=== PATIENT | male | born 1950 ===

== ENCOUNTER 2017-06-12 08:44 | Inpatient (IN) | payer MEDICARE, OTHER ==
[2017-06-12 09:43] LABS: Basophils % (Auto) 0.5 % (0.0-1.8); Eosinophils # (Auto) 0.6 K/mm3 (0.0-0.4); Hematocrit 40.8 % (35.5-45.6); Hemoglobin 13.8 gm/dl (11.8-15.2); Lymphocytes # (Auto) 2.7 K/mm3 (1.2-5.4); Lymphocytes % (Auto) 32.2 % (13.4-35.0); Mean Corpuscular HGB Conc 34 % (32-34); Mean Corpuscular Hemoglobin 29 pg (28-32); Mean Corpuscular Volume 85 fl (84-94); Monocytes # (Auto) 0.5 K/mm3 (0.0-0.8); Monocytes % (Auto) 6.3 % (0.0-7.3); Platelet Count 196 K/mm3 (140-440); Red Blood Count 4.83 M/mm3 (3.65-5.03); Red Cell Distribution Width 13.4 % (13.2-15.2)
[2017-06-12] MEDS ORDERED: SUBLIMAZE IV ONE (09:47)
--- NOTE | 2017-06-12 09:48 | Cat Scan Report ---
CT HEAD WITHOUT CONTRAST: HISTORY: Neurological deficit. TECHNIQUE: Sequential 2.5mm CT images. COMPARISON: none. FINDINGS: Cerebral Parenchyma: Within normal limits. Cerebellum: Within normal limits. Brainstem: Within normal limits. Ventricles: Normal. Sella: Normal. Extra-axial spaces: Normal. Basal Cisterns: Normal. Intracranial Hemorrhage: None. Midline Shift: None. Calvarium: Normal. Sinuses: Normal. Mastoid Air Cells: Normal. Visualized Orbits: Normal. IMPRESSION: Cranial CT scan within normal limits. These findings were discussed with Dr. Mota in the emergency department at 0928 hours.
[2017-06-12 09:57] LABS: INR 0.86 (0.87-1.13)
[2017-06-12 09:58] LABS: Partial Thromboplastin Time 26.7 Sec. (24.2-36.6)
[2017-06-12 10:00] LABS: BUN/Creatinine Ratio 19; Blood Urea Nitrogen 15 mg/dL (9-20); Calcium 8.7 mg/dL (8.4-10.2); Hemolysis Index 5
--- NOTE | 2017-06-12 12:02 | Cat Scan Report ---
CTA NECK: HISTORY: CTA. TECHNIQUE: Helical CT following IV contrast. Sagittal and coronal reformatted images. 3D volume rendering technique. Stenosis was calculated using NASCET criteria with the distal ICA being standard diameter. FINDINGS: The visualized aortic arch, innominate artery and proximal bilateral subclavian arteries are widely patent with less than 20% stenosis. Within the right carotid system: There is less than 20% stenosis. Within the left carotid system: There is less than 20% stenosis. The cervical vertebral arteries are patent with less than 20% stenosis. IMPRESSION: Unremarkable CTA of the neck.
--- NOTE | 2017-06-12 12:03 | Cat Scan Report ---
CTA HEAD: HISTORY: Right sided weakness, CVA. TECHNIQUE: Helical CT images after IV contrast with 0.625mm reformations. Sagittal and coronal reformats. Rotational MIP images. 3D volume rendering technique. NASCET criteria were utilized. FINDINGS: The arterial structures of the anterior and posterior circulations are patent throughout. No evidence for stenosis, occlusion or aneurysm. IMPRESSION: Unremarkable CTA head. No large vessel occlusion is identified.
[2017-06-12] MEDS ORDERED: SUBLIMAZE ONE (12:12)
--- NOTE | 2017-06-12 12:38 | Emergency Department Report ---
ED Neuro Deficit HPI - General Chief Complaint: Neuro Symptoms/Deficit Stated Complaint: NEURO SYMPTOMS Time Seen by Provider: 06/12/17 09:23 Source: family, RN notes reviewed Mode of arrival: Wheelchair Limitations: Language Barrier, Physical Limitation - History of Present Illness Initial Comments: Primary care DrDarius: Neo Gage 7-year-old male. Has a past medical history of hypertension and diabetes. The patient is accompanied by his daughter who indicates she will translate for him. Patient presents to the ER with complaint of stroke. 3 days ago began having right-sided pain in the neck and headache. Lost his balance yesterday, his right side was "giving out." His symptoms are constant and they do not radiate anywhere, they worse with physical exertion, and they have no relieving factors. The patient's daughter indicates she feels like her father is at his mental status baseline. No cough, no urinary symptoms. -: Gradual Location: dysarthria, right arm, right leg, ataxia Presenting Symptoms: Present: Weak/Paralyzed One Side, Unable to Speak Clearly History of same: No Place: home Severity: moderate Improves With: other Worsens With: other On Anticoagulants: No Context: gradual onset Associated Symptoms: confusion, headaches, loss of appetite, malise, weakness. denies: chest pain, cough, diaphoresis, fever/chills, nausea/vomiting, vertigo, seizures, shortness of breath, syncope - Related Data Home Medications: Home Medications Medication Instructions Recorded Confirmed Last Taken No Known Home Medications [No 06/12/17 06/12/17 Unknown Reported Home Medications] Allergies/Adverse Reactions: Allergies Allergy/AdvReac Type Severity Reaction Status Date / Time No Known Allergies Allergy Unverified 06/12/17 08:59 ED Review of Systems ROS: Stated complaint: NEURO SYMPTOMS Other details as noted in HPI Comment: All other systems reviewed and negative ED Past Medical Hx - Past Medical History Hx Hypertension: Yes Hx Diabetes: Yes - Surgical History Past Surgical History?: No - Social History Smoking Status: Never Smoker Substance Use Type: None - Medications Home Medications: Home Medications Medication Instructions Recorded Confirmed Last Taken Type No Known Home Medications [No 06/12/17 06/12/17 Unknown History Reported Home Medications] ED Neuro Physical Exam - General Limitations: Physical Limitation General appearance: alert, in no apparent distress Suspected Stroke: Yes - Head Head exam: Present: atraumatic, normocephalic - Eye Eye exam: Present: normal appearance, PERRL, EOMI - ENT ENT exam: Present: normal exam, normal orophraynx, mucous membranes moist, normal external ear exam - Neck Neck exam: Present: normal inspection, full ROM - Respiratory Respiratory exam: Present: normal lung sounds bilaterally. Absent: respiratory distress - Cardiovascular Cardiovascular Exam: Present: normal rhythm, bradycardia, normal heart sounds. Absent: systolic murmur, diastolic murmur, rubs, gallop - GI/Abdominal GI/Abdominal exam: Present: soft, normal bowel sounds. Absent: distended, tenderness, guarding, rebound, rigid, pulsatile mass - Rectal Rectal exam: Present: deferred - Extremities Exam Extremities exam: Present: normal inspection, full ROM, normal capillary refill. Absent: pedal edema, joint swelling, calf tenderness - Back Exam Back exam: Present: normal inspection, full ROM. Absent: tenderness, CVA tenderness (R), paraspinal tenderness, vertebral tenderness - Neurological Exam Neurological exam: Present: alert, motor sensory deficit (there is decreased strength in the right upper extremity, right lower extremity. Sensation intact to light touch in the upper and lower extremities.) - NIHSS Assessment Interval: Baseline 1a. Level of Consciousness: alert 1b. LOC Questions: answers correctly 1c. LOC Commands: performs tasks correctly 2. Best Gaze: normal 3. Visual: partial hemianopia 4. Facial Palsy: normal symmetrical movement 5b. Motor Arm Right: drift 5a. Motor Arm Left: no drift 6a. Motor Leg Left: no drift 6b. Motor Leg Right: drift 7. Limb Ataxia: present 1 limb 8. Sensory: normal 9. Best Language: no aphasia 10. Dysarthria: mild/moderate dysarthria 11. Extinction/Inattention: no abnormality Total Score: 5 Stroke Severity: Moderate Stroke - Psychiatric Psychiatric exam: Present: normal affect, normal mood - Skin Skin exam: Present: warm, dry, intact, normal color. Absent: rash ED Course Vital Signs 06/12/17 06/12/17 06/12/17 08:59 09:45 09:53 Temperature 97.5 F L 97.6 F Pulse Rate 43 L 44 L Respiratory 16 16 16 Rate Blood Pressure 174/83 Blood Pressure 169/92 [Right] O2 Sat by Pulse 100 100 100 Oximetry 06/12/17 06/12/17 06/12/17 10:01 10:25 10:30 Temperature Pulse Rate 43 L 44 L Respiratory 13 16 Rate Blood Pressure 169/92 169/92 165/88 Blood Pressure [Right] O2 Sat by Pulse 100 92 98 Oximetry 06/12/17 06/12/17 06/12/17 11:00 11:30 12:00 Temperature Pulse Rate 40 L 56 L Respiratory 11 L 20 19 Rate Blood Pressure 151/83 155/85 187/116 Blood Pressure [Right] O2 Sat by Pulse 99 99 99 Oximetry 06/12/17 12:20 Temperature Pulse Rate Respiratory 17 Rate Blood Pressure Blood Pressure [Right] O2 Sat by Pulse Oximetry - Lab Data Result diagrams: 06/12/17 09:34 06/12/17 09:34 Lab Results 06/12/17 06/12/17 06/12/17 Range/Units 09:34 09:34 09:34 WBC 8.5 (4.5-11.0) K/mm3 RBC 4.83 (3.65-5.03) M/mm3 Hgb 13.8 (11.8-15.2) gm/dl Hct 40.8 (35.5-45.6) % MCV 85 (84-94) fl MCH 29 (28-32) pg MCHC 34 (32-34) % RDW 13.4 (13.2-15.2) % Plt Count 196 (140-440) K/mm3 Lymph % (Auto) 32.2 (13.4-35.0) % [place] % (Auto) 6.3 (0.0-7.3) % Eos % (Auto) 7.0 H (0.0-4.3) % Baso % (Auto) 0.5 (0.0-1.8) % Lymph # 2.7 (1.2-5.4) K/mm3 [place] # 0.5 (0.0-0.8) K/mm3 Eos # 0.6 H (0.0-0.4) K/mm3 Baso # 0.0 (0.0-0.1) K/mm3 Seg Neutrophils % 54.0 (40.0-70.0) % Seg Neutrophils # 4.6 (1.8-7.7) K/mm3 PT 12.1 L (12.2-14.9) Sec. INR 0.86 L (0.87-1.13) APTT 26.7 (24.2-36.6) Sec. Thrombin Time (15.1-19.6) Sec. Sodium 138 (137-145) mmol/L Potassium 4.2 (3.6-5.0) mmol/L Chloride 100.3 (98-107) mmol/L Carbon Dioxide 25 (22-30) mmol/L Anion Gap 17 mmol/L BUN 15 (9-20) mg/dL Creatinine 0.8 (0.8-1.5) mg/dL Estimated GFR > 60 ml/min BUN/Creatinine Ratio 19 % Glucose 195 H (75-100) mg/dL Calcium 8.7 (8.4-10.2) mg/dL Troponin T < 0.010 (0.00-0.029) ng/mL 06/12/17 Range/Units 09:34 WBC (4.5-11.0) K/mm3 RBC (3.65-5.03) M/mm3 Hgb (11.8-15.2) gm/dl Hct (35.5-45.6) % MCV (84-94) fl MCH (28-32) pg MCHC (32-34) % RDW (13.2-15.2) % Plt Count (140-440) K/mm3 Lymph % (Auto) (13.4-35.0) % [place] % (Auto) (0.0-7.3) % Eos % (Auto) (0.0-4.3) % Baso % (Auto) (0.0-1.8) % Lymph # (1.2-5.4) K/mm3 [place] # (0.0-0.8) K/mm3 Eos # (0.0-0.4) K/mm3 Baso # (0.0-0.1) K/mm3 Seg Neutrophils % (40.0-70.0) % Seg Neutrophils # (1.8-7.7) K/mm3 PT (12.2-14.9) Sec. INR (0.87-1.13) APTT (24.2-36.6) Sec. Thrombin Time 16.1 (15.1-19.6) Sec. Sodium (137-145) mmol/L Potassium (3.6-5.0) mmol/L Chloride (98-107) mmol/L Carbon Dioxide (22-30) mmol/L Anion Gap mmol/L BUN (9-20) mg/dL Creatinine (0.8-1.5) mg/dL Estimated GFR ml/min BUN/Creatinine Ratio % Glucose (75-100) mg/dL Calcium (8.4-10.2) mg/dL Troponin T (0.00-0.029) ng/mL - EKG Data -: EKG Interpreted by Me EKG shows normal: sinus rhythm Rate: bradycardia When compared to previous EKG there are: previous EKG unavailable 06/12/17 12:37 Bradycardia, 42 bpm, normal axis, normal intervals, T-wave inversion aVL, T- wave inversion V2, not having chest pain, abnormal EKG, not morphologically consistent with ST elevation myocardial infarction - Radiology Data Radiology results: report reviewed, image reviewed Noncontrast CT scan of the brain is negative. CT angiogram negative for the head and neck. - Medical Decision Making Differential diagnosis, including the not limited to: Subacute stroke, dissection, thrombosis, hemorrhage, pneumonia, urinary tract infection Assessment and plan: 67-year-old male with 3 days of nonspecific neurologic symptoms. Given that symptoms have been present for greater than 4.5 hours, he is not a TPA/endovascularly candidate. Given that his CT scan does not demonstrate thrombosis or dissection, he does not require transfer to an endovascular institution. Case is discussed with the [place] physician, Dr. Mathews, who gave authorization for the patient to be admitted to this hospital. The case was then discussed with the [facility] physician, Dr. Martinez, who accepted the patient to the medical service. - Core Measures Measure Exclusions: not indicated - Thrombolytic Inclusion/Exclusion Thrombolytic Exclusion Criteria: Symptom Onset > 3 Hours Critical care attestation.: If time is entered above; I have spent that time in minutes in the direct care of this critically ill patient, excluding procedure time. ED Disposition Clinical Impression: Unsteady gait, Right sided weakness Disposition: OP ADMIT IP TO THIS HOSP Is pt being admited?: Yes Does the pt Need Aspirin: Yes Condition: Fair Referrals: PRIMARY CARE, [Primary Care Provider] - 3-5 Days
[2017-06-12] MEDS ORDERED: BABY ASPIRIN PO ONE (12:41)
--- NOTE | 2017-06-12 12:48 | XRay Report ---
AP CHEST: HISTORY: CVA, pneumonia AP view of the chest demonstrates a normal mediastinal and cardiac contour with clear lungs and normal bony and soft tissue structures. IMPRESSION: Unremarkable AP chest.
[2017-06-12 13:14] LABS: Bilirubin,Urine NEG (Negative); Blood,Urine SM (Negative); Color,Urine Straw (Yellow); Mucus,Urine FEW /HPF; Protein,Urine <15 mg/dL mg/dL (Negative); Urobilinogen,Urine < 2.0 mg/dL (<2.0)
[2017-06-12] MEDS ORDERED: ASPIRIN ONE (13:50)
--- NOTE | 2017-06-12 16:19 | History and Physical Report ---
History of Present Illness Date of examination: 06/12/17 Date of admission: 06/12/17 12:41 Chief complaint: CC Rt Sided weakness 3 days History of present illness: History of Present Illness 67 year-old male with Language barrier with past medical history of hypertension and diabetes accompanied by his daughter who indicates she will translate for him Patient presents to the ER with complaint of stroke. 3 days ago began having right-sided pain in the neck and headache. Lost his balance yesterday, his right side was "giving out." His symptoms are worse with physical exertion, and they have no relieving factors. The patient's daughter indicates she feels like her father is at his mental status baseline. No cough, no urinary symptoms.Basically has Rt Sided weaknrss which is present but manageable .Daughter feels that he has rt sided weakness and has difficultywalking Past Medical History: Hx Hypertension: Yes Hx Diabetes: Yes Surgical History Past Surgical History?: No Social History Smoking Status: Never Smoker Substance Use Type: None Family History: Non contributory - Medications Home Medications: Home Medications Medication Instructions Recorded Confirmed Last Taken Type No Known Home Medications [No 06/12/17 06/12/17 Unknown History Reported Home Medications] Medications and Allergies Allergies Allergy/AdvReac Type Severity Reaction Status Date / Time No Known Allergies Allergy Unverified 06/12/17 08:59 Home Medications Medication Instructions Recorded Confirmed Last Taken Type No Known Home Medications [No 06/12/17 06/12/17 Unknown History Reported Home Medications] Review of Systems All systems: negative Constitutional: no weight loss, no weight gain, no fever, no chills Ears, nose, mouth and throat: no ear pain, no ear discharge, no tinnitis, no decreased hearing, no nose pain Cardiovascular: no chest pain, no orthopnea, no palpitations, no rapid/ irregular heart beat, no edema, no syncope, no lightheadedness, no shortness of breath Respiratory: no cough, no cough with sputum, no excessive sputum, no hemoptysis Gastrointestinal: no abdominal pain, no nausea, no vomiting, no diarrhea, no constipation, no change in bowel habits, no hematemesis, no coffee ground emesis Genitourinary Male: no dysuria, no hematuria, no flank pain, no discharge, no urinary frequency, no urinary hesitancy, no nocturia, no incontinence, no erectile dysfunction, no genital pain Rectal: no pain Musculoskeletal: no neck stiffness, no neck pain, no shooting arm pain, no arm numbness/tingling, no low back pain, no shooting leg pain, no leg numbness/ tingling, no redness of joints Integumentary: no rash, no pruritis, no redness, no sores Neurological: paralysis (Tr Sided paresis), no seizures, no syncope Psychiatric: no anxiety, no memory loss, no change in sleep habits, no sleep disturbances Endocrine: no cold intolerance, no heat intolerance, no polyphagia, no excessive thirst, no polydipsia, no polyuria Hematologic/Lymphatic: no easy bruising, no easy bleeding Allergic/Immunologic: no urticaria, no allergic rhinitis, no wheezing Exam - Constitutional Vitals: Temp Pulse Resp BP Pulse Ox 97.6 F 46 L 16 158/85 98 06/12/17 09:53 06/12/17 13:45 06/12/17 13:45 06/12/17 13:45 06/12/17 13:45 General appearance: Present: no acute distress, well-nourished - EENT Eyes: Present: PERRL ENT: hearing intact, clear oral mucosa - Neck Neck: Present: supple, normal ROM - Respiratory Respiratory effort: normal Respiratory: bilateral: CTA - Cardiovascular Heart rate: 70 Rhythm: regular Heart Sounds: Present: S1 & S2. Absent: rub, click - Extremities Extremities: no ischemia, pulses intact, pulses symmetrical, No edema Peripheral Pulses: within normal limits - Abdominal General gastrointestinal: Present: soft, non-tender, non-distended, normal bowel sounds Male genitourinary: Present: normal - Rectal Rectal Exam: deferred - Integumentary Integumentary: Present: clear, warm, dry - Musculoskeletal Musculoskeletal: right sided weakness (4/4 power RE %/5 power EUE Reflexes brisk on rt side) - Psychiatric Psychiatric: appropriate mood/affect, intact judgment & insight - Neurologic Neurologic: CNII-XII intact, moves all extremities - Allied Health Allied health notes reviewed: nursing, case management Results - Labs CBC & Chem 7: 06/12/17 09:34 06/12/17 09:34 Labs: Laboratory Last Values WBC 8.5 K/mm3 (4.5-11.0) 06/12/17 09:34 RBC 4.83 M/mm3 (3.65-5.03) 06/12/17 09:34 Hgb 13.8 gm/dl (11.8-15.2) 06/12/17 09:34 Hct 40.8 % (35.5-45.6) 06/12/17 09:34 MCV 85 fl (84-94) 06/12/17 09:34 MCH 29 pg (28-32) 06/12/17 09:34 MCHC 34 % (32-34) 06/12/17 09:34 RDW 13.4 % (13.2-15.2) 06/12/17 09:34 Plt Count 196 K/mm3 (140-440) 06/12/17 09:34 Lymph % (Auto) 32.2 % (13.4-35.0) 06/12/17 09:34 [place] % (Auto) 6.3 % (0.0-7.3) 06/12/17 09:34 Eos % (Auto) 7.0 % (0.0-4.3) H 06/12/17 09:34 Baso % (Auto) 0.5 % (0.0-1.8) 06/12/17 09:34 Lymph # 2.7 K/mm3 (1.2-5.4) 06/12/17 09:34 [place] # 0.5 K/mm3 (0.0-0.8) 06/12/17 09:34 Eos # 0.6 K/mm3 (0.0-0.4) H 06/12/17 09:34 Baso # 0.0 K/mm3 (0.0-0.1) 06/12/17 09:34 Seg Neutrophils % 54.0 % (40.0-70.0) 06/12/17 09:34 Seg Neutrophils # 4.6 K/mm3 (1.8-7.7) 06/12/17 09:34 PT 12.1 Sec. (12.2-14.9) L 06/12/17 09:34 INR 0.86 (0.87-1.13) L 06/12/17 09:34 APTT 26.7 Sec. (24.2-36.6) 06/12/17 09:34 Thrombin Time 16.1 Sec. (15.1-19.6) 04/30/18 09:34 Sodium 138 mmol/L (137-145) 06/12/17 09:34 Potassium 4.2 mmol/L (3.6-5.0) 06/12/17 09:34 Chloride 100.3 mmol/L (98-107) 06/12/17 09:34 Carbon Dioxide 25 mmol/L (22-30) 06/12/17 09:34 Anion Gap 17 mmol/L 06/12/17 09:34 BUN 15 mg/dL (9-20) 06/12/17 09:34 Creatinine 0.8 mg/dL (0.8-1.5) 06/12/17 09:34 Estimated GFR > 60 ml/min 06/12/17 09:34 BUN/Creatinine Ratio 19 % 06/12/17 09:34 Glucose 195 mg/dL (75-100) H 06/12/17 09:34 Calcium 8.7 mg/dL (8.4-10.2) 06/12/17 09:34 Troponin T < 0.010 ng/mL (0.00-0.029) 06/12/17 09:34 Urine Color Straw (Yellow) 06/12/17 12:42 Urine Turbidity Clear (Clear) 06/12/17 12:42 Urine pH 6.0 (5.0-7.0) 06/12/17 12:42 Ur Specific [place] 1.057 (1.003-1.030) H 06/12/17 12:42 Urine Protein <15 mg/dl mg/dL (Negative) 06/12/17 12:42 Urine Glucose (UA) 150 mg/dL (Negative) 06/12/17 12:42 Urine Ketones Neg mg/dL (Negative) 06/12/17 12:42 Urine Blood Sm (Negative) 06/12/17 12:42 Urine Nitrite Neg (Negative) 06/12/17 12:42 Urine Bilirubin Neg (Negative) 06/12/17 12:42 Urine Urobilinogen < 2.0 mg/dL (<2.0) 06/12/17 12:42 Ur Leukocyte Esterase Neg (Negative) 06/12/17 12:42 Urine WBC (Auto) 1.0 /HPF (0.0-6.0) 06/12/17 12:42 Urine RBC (Auto) 5.0 /HPF (0.0-6.0) 06/12/17 12:42 U Epithel Cells (Auto) < 1.0 /HPF (0-13.0) 06/12/17 12:42 Urine Mucus Few /HPF 06/12/17 12:42 - Imaging and Cardiology EKG: report reviewed Imaging and Cardiology: CTA neck/Head and CT Head negative Assessment and Plan Advance Directives: Yes (Full code) VTE prophylaxis?: Chemical Plan of care discussed with patient/family: Yes - Patient Problems (1) Acute CVA (cerebrovascular accident) Current Visit: Yes Status: Acute Plan to address problem: CVA w/u initiated MRI/MRA/CDS and ECHO ordered Plavix initiated (2) HTN (hypertension) Current Visit: Yes Status: Chronic Qualifiers: Hypertension type: essential hypertension Qualified Code(s): I10 - Essential (primary) hypertension Plan to address problem: Not on any meds Will initiate if BP runs high (3) T2DM (type 2 diabetes mellitus) Current Visit: Yes Status: Chronic 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
[2017-06-13] MEDS ORDERED: AMBIEN PO PRN (02:11)
[2017-06-13] MEDS ORDERED: SODIUM CHLORIDE FLUSH SYRINGE 10 ML IV PRN (02:11)
[2017-06-13] MEDS ORDERED: TYLENOL PO PRN (02:11)
[2017-06-13] MEDS ORDERED: ZOFRAN IV PRN ×2 (02:11→21:11)
[2017-06-13] MEDS ORDERED: SODIUM CHLORIDE FLUSH SYRINGE 10 ML INJ PRN (02:15)
[2017-06-13 03:18] LABS: BUN/Creatinine Ratio 20; Blood Urea Nitrogen 18 mg/dL (9-20); Calcium 8.9 mg/dL (8.4-10.2); Hemolysis Index 4
[2017-06-13 03:42] LABS: Basophils % (Auto) 0.5 % (0.0-1.8); Eosinophils # (Auto) 0.4 K/mm3 (0.0-0.4); Eosinophils % (Auto) 5.2 % (0.0-4.3); Hemoglobin 13.6 gm/dl (11.8-15.2); Lymphocytes % (Auto) 25.2 % (13.4-35.0); Mean Corpuscular HGB Conc 35 % (32-34); Mean Corpuscular Hemoglobin 29 pg (28-32); Mean Corpuscular Volume 83 fl (84-94); Monocytes # (Auto) 0.4 K/mm3 (0.0-0.8); Monocytes % (Auto) 5.6 % (0.0-7.3); Platelet Count 190 K/mm3 (140-440); Red Blood Count 4.69 M/mm3 (3.65-5.03); Red Cell Distribution Width 13.4 % (13.2-15.2)
[2017-06-13] MEDS: HEPARIN SUB-Q SCH ×3 (03:50→22:03)
[2017-06-13] MEDS: PERCOCET 5/325 PO PRN ×2 (03:54→10:45)
[2017-06-13] MEDS: PEPCID PO SCH ×2 (09:38→22:03)
[2017-06-13] MEDS: SODIUM CHLORIDE FLUSH SYRINGE 10 ML IV SCH ×2 (09:39→22:05)
[2017-06-13] MEDS ORDERED: PLAVIX PO SCH (10:00)
[2017-06-13] MEDS: HumaLOG SUB-Q SCH ×4 (10:36→22:04)
--- NOTE | 2017-06-13 15:02 | Magnetic Resonance Report ---
MRI OF THE BRAIN WITHOUT CONTRAST: HISTORY: Right sided weakness, stroke PROCEDURE: Multiplanar, multisequence MR imaging of the brain without IV contrast was performed. FINDINGS: The CT head dated 06/12/17 was reviewed. MRI demonstrates a 5 mm focus of diffusion restriction in the right tim on diffusion image 9. There is a second 7 mm focus of diffusion restriction in the right inferior cerebellar peduncle on diffusion image 5. No other areas of diffusion restriction. T2 shine through artifact is noted high in the right frontal lobe on image 24. There is moderate cortical volume loss and moderate nonspecific chronic white matter changes. Chronic 8mm infarct in the right frontal white matter on FLAIR image 18 is noted. No large chronic infarct. No evidence for hemorrhage, mass or extra-axial fluid collection The midline structures are central. The basal cisterns are patent. There is a 5 mm focus of increased T1 and flair signal along the right side of the brainstem within the perimesencephalic cistern which appears to follow fat signal on all sequences. This appears to represent a tiny incidental lipoma. Normal ventricular size. The orbital cavities and sella turcica demonstrate no abnormality. The visualized paranasal sinuses and mastoid air cells are well aerated. IMPRESSION: 2 millimetric foci of diffusion restriction are identified in the right tim and right inferior cerebellar peduncle consistent with subacute ischemic infarcts. Volume loss. Chronic white matter changes.
--- NOTE | 2017-06-13 15:04 | Magnetic Resonance Report ---
MRA HEAD WITHOUT CONTRAST HISTORY: Stroke. [id number] imaging with MIP reformations of the [place] of [place] is submitted. FINDINGS: There is normal endovascular signal throughout the distal internal carotid arteries, anterior cerebral arteries and middle cerebral arteries. There is decreased flow or focal occlusion in the distal right vertebral artery best demonstrated on axial images 13-19. There is normal flow in the left vertebral artery, basilar artery and posterior cerebral arteries. No evidence for aneurysm or dissection IMPRESSION: Probable high-grade stenosis or occlusion of the distal right vertebral artery.
--- NOTE | 2017-06-13 15:46 | Progress Note ---
Assessment and Plan /Acute CVA (cerebrovascular accident) CVA w/u initiated MRI/MRA/CDS and ECHO ordered MRI showed right Sherice and cerebellar peduncle infract Plavix initiated but neurology recommending to cont aspirin, follow PT eval /HTN (hypertension) Not on any meds Will initiate if BP runs high /T2DM (type 2 diabetes mellitus) SSI Coverage for now Check A1c /HLD (hyperlipidemia) Initiated statins /Nausea with vomiting- placed on zofran /DVT prophylaxis On Heparin Brief history: This 67-year-old right-handed Yakut male developed right sided neck pain radiating to the top of his head on Monday that on Monday the pain was worse with associated vertigo and weakness of his arm and leg but not of his face without nausea. He was admitted to [facility] for further evaluation. Radiological test: MRI brain: 2 mm foci of diffusion restriction identified in the right sherice and right inferior cerebellar peduncle consistent with subacute ischemic infarct. Hospitalist Physical exam: GENERAL: well-developed and well-nourished male lying on bed appeared to be in mild distressed HEENT: Normocephalic. Atraumatic. No conjunctival congestion or icterus. Patient has moist mucous membranes. NECK: Supple. Trachea midline. CHEST/LUNGS: Clear to auscultated bilaterally, breathing nonlabored. No wheezes crackles or rhonchi. HEART/CARDIOVASCULAR: Regular in rate and rhythm. S1 and S2 positive. ABDOMEN: Abdomen is soft, nontender. Patient has normal bowel sounds. SKIN: There is no rash. Warm and dry. NEURO: No focal motor deficit. Follows command. MUSCULOSKELETAL: No joint effusion or tenderness. EXTRIMITY: No edema, no cyanosis or clubbing. PSYCH: Cooperative. Subjective Date of service: 06/13/17 Interval history: Patient seen and examined. Medical records and medication list reviewed. No acute event overnight noted by the RN. Patient complains of right-sided weakness, had episode of emesis today following MRI Discussed plan of care at bedside with patient's family. Objective - Constitutional Vitals: Vital Signs - 12hr 06/13/17 06/13/17 06/13/17 04:02 07:57 08:04 Temperature 98.5 F 97.8 F Pulse Rate 53 L 58 L Respiratory 18 20 18 Rate Blood Pressure 156/82 164/95 O2 Sat by Pulse 96 96 Oximetry 06/13/17 08:38 Temperature Pulse Rate Respiratory Rate Blood Pressure O2 Sat by Pulse 96 Oximetry - Labs CBC & Chem 7: 06/13/17 02:40 06/14/17 06:43 Labs: Abnormal lab results 06/12/17 06/12/17 06/12/17 Range/Units 10:10 15:42 21:26 MCV (84-94) fl MCHC (32-34) % Eos % (Auto) (0.0-4.3) % Glucose (75-100) mg/dL POC Glucose 196 H 146 H 113 H (70-105) Hemoglobin A1c (4-6) % 06/13/17 06/13/17 06/13/17 Range/Units 02:40 02:40 02:40 MCV 83 L (84-94) fl MCHC 35 H (32-34) % Eos % (Auto) 5.2 H (0.0-4.3) % Glucose 182 H (75-100) mg/dL POC Glucose (70-105) Hemoglobin A1c 7.2 H (4-6) % 06/13/17 06/13/17 Range/Units 10:00 15:00 MCV (84-94) fl MCHC (32-34) % Eos % (Auto) (0.0-4.3) % Glucose (75-100) mg/dL POC Glucose 191 H 140 H (70-105) Hemoglobin A1c (4-6) %
--- NOTE | 2017-06-13 18:01 | Consultation ---
History of Present Illness Consult date: 06/13/17 Requesting physician: GERMÁN BREWSTER Reason for Consult: right side weakness, dysphagia, hoarse voice Chief complaint: right side weakness, dysphagia, hoarse voice History of present illness: This 67-year-old right-handed Gambian male developed right sided neck pain radiating to the top of his head on Monday that on Monday the pain was worse with associated vertigo and weakness of his arm and leg but not of his face without nausea. He developed nausea and emesis along with the persistent neck pain and headache and vertigo with some slurring and decreased volume of his speech since yesterday as well. MRI shows acute small strokes in the right anterolateral medulla and right anterior tim and old lacunar strokes bilaterally in the periphery and one old lacunar right cerebellar stroke. He has had borderline blood pressure at home approximately 150/80 according to his daughter who translates. He has not been on any aspirin. He takes a gummy version of calcium but no other prescribed medications or other over-the- counter medications. Symptoms have gone away except for the dizziness and voice change and nausea and emesis. Though he apparently passed a swallow screen last night he was not throwing up but now is with any oral food. 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 Has 2 children, lives with his in one of his daughters and her family.). denies: smoking, alcohol abuse (José some alcohol when much younger), prescription drug abuse, IV drug use (never illicit drugs) Family history: diabetes (brother (same one)), hypertension (same brother), stroke (brother), other (no history of epilepsy) Medications and Allergies Allergies Allergy/AdvReac Type Severity Reaction Status Date / Time No Known Allergies Allergy Unverified 06/12/17 08:59 Home Medications Medication Instructions Recorded Confirmed Last Taken Type No Known Home Medications [No 06/12/17 06/12/17 Unknown History Reported Home Medications] Active Meds: Active Medications Acetaminophen (Tylenol) 650 mg PO Q4H PRN PRN Reason: Pain MILD(1-3)/Fever >100.5/KEANE Clopidogrel Bisulfate (Plavix) 75 mg PO QDAY [facility] Last Admin: 06/13/17 09:38 Dose: 75 mg Famotidine (Pepcid) 20 mg PO BID [facility] Last Admin: 06/13/17 09:38 Dose: 20 mg Heparin Sodium (Porcine) (Heparin) 5,000 unit SUB-Q Q12HR [facility] Last Admin: 06/13/17 10:18 Dose: 5,000 unit Insulin Human Lispro (Humalog) 0 unit SUB-Q ACHS [facility]; Protocol Last Admin: 06/13/17 16:05 Dose: Not Given Morphine Sulfate (Morphine) 2 mg IV Q4H PRN PRN Reason: Pain, Moderate (4-6) Ondansetron HCl (Zofran) 8 mg IV Q8H PRN PRN Reason: Nausea And Vomiting Oxycodone/Acetaminophen (Percocet 5/325) 1 tab PO Q6H PRN PRN Reason: Pain, Moderate (4-6) Last Admin: 06/13/17 10:45 Dose: 1 tab Sodium Chloride (Sodium Chloride Flush Syringe 10 Ml) 10 ml IV BID [facility] Last Admin: 06/13/17 09:39 Dose: 10 ml Sodium Chloride (Sodium Chloride Flush Syringe 10 Ml) 10 ml IV PRN PRN PRN Reason: LINE FLUSH Zolpidem Tartrate (Ambien) 5 mg PO QHS PRN PRN Reason: Insomnia Review of Systems All systems: negative (no headaches usually and no dizziness usually. Some snoring but no pauses have been noted, naps for an hour once a day but does not doze off other times and not sleepy driving. No memory problems.) Physical Examination - Vital Signs Vital Signs: Vital Signs Temp Pulse Resp BP Pulse Ox 97.5 F L 43 L 16 174/83 100 06/12/17 08:59 06/12/17 08:59 06/12/17 08:59 06/12/17 08:59 06/12/17 08:59 - Physical Exam Narrative exam: General Appearance: well developed but overweight (per BMI) late 60s male in [facility], seen with his daughter who translates and his son-in-law. HEENT: atraumatic, normocephalic; no bruits, 2+ Selina without soreness or induration or enlargement, sclerae nonicteric. Oropharynx pink and moist. No TMJ click, no TMJ or sinus soreness to pressure or percussion. Neck: supple, no bruits. Heart: no murmur but sounds are distant. Extremities: no clubbing, cyanosis or edema. 2+ dorsalis pedis pulses bilaterally. Neurologic Exam: Mental Status: Awake, alert, oriented X 3, speech is clear to me but hoarse though his daughter states it is also a little slurred, names pen and tip of pen in Gambian, poor abstraction. Names President but not Respiratory Therapy Manager, serial 7's intact, no right-left confusion, gets 3 of 3 objects at 3 minutes, spells WORLD backwards correctly in Gambian. Cranial Nerves: cazares full, no papilledema, can't cooperate enough to see venous pulsations, PERRLA without Sheila's, EOMs full without nystagmus or diplopia, facial sensation intact to pinprick and light touch, right ptosis or possibly enlarged left palpebral fissure instead, Maher is midline, palate rises symmetrically to phonation but gags are absent, shoulder shrug is 5 X 2, tongue protrudes midline. Cerebellar: finger to nose is dysmetric on the left with some perpendicular tremor but intact on the right, heel to lomeli is intact bilaterally. Sensory: intact to light touch, pinprick, and vibrations. Double simultaneous stimulation is intact. Motor Exam Upper Extremities: no drift or pronation, Kurt intact. Certified Master Safe Technician are 5 X 2, tone is normal. No atrophy or fasciculations are noted visually. Motor Exam Lower Extremities: no leg lag, quadriceps and anterior tibials and gastrocnemius are 5 X 2. Kurt intact. Tone is normal. No atrophy or fasciculations are noted visually. Reflexes: Palmomental, snout and jaw jerk are negative. Triceps are trace, biceps are trace right and 0 left and brachioradialis are 0 bilaterally. Kae's is negative bilaterally. Knee jerks are 1 and ankle jerks are 0 bilaterally becoming trace right and 2 left with reinforcement and without clonus. Toes are downgoing bilaterally to Babinski testing. - Assessment Assessment Interval: Baseline - Level of Consciousness 1a. Level of Consciousness: alert - LOC Questions 1b. LOC Questions: answers correctly - LOC Command 1c. LOC Commands: performs tasks correctly - Best Gaze 2. Best Gaze: normal - Visual 3. Visual: partial hemianopia - Facial Palsy 4. Facial Palsy: normal symmetrical movement - Motor Arm 5b. Motor Arm Right: drift - Motor Leg 6a. Motor Leg Left: no drift - Limb Ataxia 7. Limb Ataxia: present 1 limb - Sensory 8. Sensory: normal - Best Language 9. Best Language: no aphasia - Dysarthria 10. Dysarthria: mild/moderate dysarthria - Extinction and Inattention 11. Extinction/Inattention: no abnormality Results - Laboratory Findings CBC and BMP: 06/13/17 02:40 06/13/17 02:40 Abnormal Lab Findings: Abnormal Labs 06/12/17 06/12/17 06/12/17 09:34 09:34 09:34 MCV MCHC Eos % (Auto) 7.0 H Eos # 0.6 H PT 12.1 L INR 0.86 L Glucose 195 H POC Glucose Hemoglobin A1c Ur Specific Thornton 06/12/17 06/12/17 06/12/17 10:10 12:42 15:42 MCV MCHC Eos % (Auto) Eos # PT INR Glucose POC Glucose 196 H 146 H Hemoglobin A1c Ur Specific Thornton 1.057 H 06/12/17 06/13/17 06/13/17 21:26 02:40 02:40 MCV 83 L MCHC 35 H Eos % (Auto) 5.2 H Eos # PT INR Glucose 182 H POC Glucose 113 H Hemoglobin A1c Ur Specific Thornton 06/13/17 06/13/17 06/13/17 02:40 10:00 15:00 MCV MCHC Eos % (Auto) Eos # PT INR Glucose POC Glucose 191 H 140 H Hemoglobin A1c 7.2 H Ur Specific Thornton Assessment and Plan Impression: 1. Brainstem strokes 2. 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 Await echocardiogram report. By description of daughter, it included bubbles. 2. I discussed the need for 30 day event monitoring after discharge from hospital, to look for atrial fibrillation, which if found, would lead to stronger blood thinner. 3. Added pravastatin 40 mg qhs (when able to swallow safely) while waiting for fasting lipids ordered already for tomorrow. 4. Ordered Speech Pathologist evaluation of swallowing and repeat nursing swallow screen for this evening. Explained possible need for PEG tube but hoping he will get better quickly enough not to need it. 5. Showed him and his family the new and old strokes on his MRI and the narrowing of right vertebral but appears it may be a windowing problem on the head MRA giving that appearance in error. Will discuss with radiologist Dr. Oscar tomorrow. 6. Will increase his Zofran dose. Stopped his Plavix in favor of aspirin, for now rectally, since he was not on aspirin previously and is therefore not an aspirin failure. Change it to oral aspirin when able to swallow pills safely. 45 minutes spent with this patient including review of 100s MRI and MRA and CT angiogram and CT images. Thank you for an interesting consultation on this pleasant late 60s male.
[2017-06-13] MEDS: ASPIRIN PR SCH (20:58)
[2017-06-13] MEDS: PRAVACHOL PO SCH (22:03)
[2017-06-14] MEDS: HumaLOG SUB-Q SCH ×4 (07:34→23:14)
[2017-06-14 08:20] LABS: Alanine Aminotransferase 17 units/L (7-56); Albumin 3.9 g/dL (3.9-5); BUN/Creatinine Ratio 18; Blood Urea Nitrogen 21 mg/dL (9-20); Calcium 8.6 mg/dL (8.4-10.2); Chol/HDL Ratio 2.66 %; HDL Cholesterol 65 mg/dL (40-59); Hemolysis Index 5; LDL Cholesterol,Direct 105 mg/dL (50-130)
[2017-06-14] MEDS: PEPCID PO SCH ×2 (10:48→23:14)
[2017-06-14] MEDS: ASPIRIN PR SCH (10:48)
[2017-06-14] MEDS: SODIUM CHLORIDE FLUSH SYRINGE 10 ML IV SCH ×2 (10:48→23:13)
[2017-06-14] MEDS: NORVASC PO SCH (15:56)
[2017-06-14] MEDS: PERCOCET 5/325 PO PRN (16:14)
[2017-06-14] MEDS: GLUCOPHAGE PO SCH (18:05)
[2017-06-14] MEDS: MORPHINE IV PRN (21:00)
[2017-06-14] MEDS: PRAVACHOL PO SCH (23:14)
[2017-06-14] MEDS: HEPARIN SUB-Q SCH (23:15)
[2017-06-15] MEDS: HumaLOG SUB-Q SCH ×3 (07:56→17:52)
[2017-06-15] MEDS: NORVASC PO SCH (10:19)
[2017-06-15] MEDS: GLUCOPHAGE PO SCH ×2 (10:19→17:52)
[2017-06-15] MEDS: HEPARIN SUB-Q SCH ×2 (10:20→21:17)
[2017-06-15] MEDS: ASPIRIN PR SCH (10:20)
[2017-06-15] MEDS: PEPCID PO SCH ×2 (10:20→21:17)
[2017-06-15] MEDS: SODIUM CHLORIDE FLUSH SYRINGE 10 ML IV SCH ×2 (10:21→21:25)
[2017-06-15] MEDS: PERCOCET 5/325 PO PRN ×2 (10:23→21:18)
--- NOTE | 2017-06-15 13:19 | Progress Note ---
Assessment and Plan /Acute CVA (cerebrovascular accident) CVA w/u initiated MRI/MRA/CDS and ECHO ordered MRI showed right Sherice and cerebellar peduncle infract Plavix initiated but neurology recommending to cont aspirin, follow PT eval Speech recommended mechanical soft diet /HTN (hypertension) Not on any meds at home will start on norvasc /T2DM (type 2 diabetes mellitus) SSI Coverage for now A1c 7.2, will initiate metformin /HLD (hyperlipidemia) Initiated statins /Nausea with vomiting- resolved, placed on zofran /DVT prophylaxis On Heparin Brief history: This 67-year-old right-handed Korean male developed right sided neck pain radiating to the top of his head on Monday that on Monday the pain was worse with associated vertigo and weakness of his arm and leg but not of his face without nausea. He was admitted to [facility] for further evaluation. Radiological test: MRI brain: 2 mm foci of diffusion restriction identified in the right sherice and right inferior cerebellar peduncle consistent with subacute ischemic infarct. Hospitalist Physical exam: GENERAL: well-developed and well-nourished male lying on bed appeared to be in mild distressed HEENT: Normocephalic. Atraumatic. No conjunctival congestion or icterus. Patient has moist mucous membranes. NECK: Supple. Trachea midline. CHEST/LUNGS: Clear to auscultated bilaterally, breathing nonlabored. No wheezes crackles or rhonchi. HEART/CARDIOVASCULAR: Regular in rate and rhythm. S1 and S2 positive. ABDOMEN: Abdomen is soft, nontender. Patient has normal bowel sounds. SKIN: There is no rash. Warm and dry. NEURO: No focal motor deficit. Follows command. MUSCULOSKELETAL: No joint effusion or tenderness. EXTRIMITY: No edema, no cyanosis or clubbing. PSYCH: Cooperative. Subjective Date of service: 06/14/17 Interval history: Patient seen and examined. Medical records and medication list reviewed. No acute event overnight noted by the RN. Patient passed swallow eval for mechanical soft diet Discussed plan of care at bedside with patient's family. Objective - Constitutional Vitals: Vital Signs - 12hr 06/15/17 06/15/17 06/15/17 04:42 04:43 07:45 Temperature 97.7 F 97.7 F Pulse Rate 78 78 76 Respiratory 20 Rate Blood Pressure 167/115 167/115 158/107 O2 Sat by Pulse 97 98 97 Oximetry 06/15/17 06/15/17 06/15/17 10:00 10:19 10:29 Temperature Pulse Rate 76 76 Respiratory Rate Blood Pressure 158/107 O2 Sat by Pulse 96 Oximetry 06/15/17 12:10 Temperature 98.1 F Pulse Rate 79 Respiratory 18 Rate Blood Pressure 165/109 O2 Sat by Pulse 97 Oximetry - Labs CBC & Chem 7: 06/13/17 02:40 06/14/17 06:43 Labs: Abnormal lab results 06/14/17 06/14/17 06/14/17 Range/Units 12:27 17:22 22:12 POC Glucose 152 H 194 H 165 H (70-105) 06/15/17 06/15/17 Range/Units 07:10 12:21 POC Glucose 121 H 188 H (70-105)
[2017-06-15] MEDS ORDERED: PRAVACHOL PO SCH (14:13)
[2017-06-15] MEDS: PRAVACHOL PO SCH (21:17)
[2017-06-15] MEDS: APRESOLINE IV PRN (21:26)
[2017-06-16] MEDS: APRESOLINE IV PRN ×2 (04:38→20:50)
[2017-06-16] MEDS: PERCOCET 5/325 PO PRN (04:55)
[2017-06-16] MEDS: HumaLOG SUB-Q SCH ×5 (07:21→23:03)
[2017-06-16] MEDS: GLUCOPHAGE PO SCH ×2 (08:20→18:14)
--- NOTE | 2017-06-16 08:32 | Progress Note ---
Assessment and Plan /Acute CVA (cerebrovascular accident) CVA w/u initiated MRI/MRA/CDS and ECHO ordered MRI showed right Sherice and cerebellar peduncle infract Plavix initiated but neurology recommending to cont aspirin, follow PT final recommendation Speech recommended mechanical soft diet /HTN (hypertension) Not on any meds at home cont on norvasc, will add BB if remains elevated /T2DM (type 2 diabetes mellitus) SSI Coverage for now A1c 7.2, initiated metformin /HLD (hyperlipidemia) Initiated statin, change it to high dose /Nausea with vomiting- resolved, placed on zofran /DVT prophylaxis On Heparin Brief history: This 67-year-old right-handed Turkmen male developed right sided neck pain radiating to the top of his head on Monday that on Monday the pain was worse with associated vertigo and weakness of his arm and leg but not of his face without nausea. He was admitted to [facility] for further evaluation. Radiological test: MRI brain: 2 mm foci of diffusion restriction identified in the right sherice and right inferior cerebellar peduncle consistent with subacute ischemic infarct. Hospitalist Physical exam: GENERAL: well-developed and well-nourished male lying on bed appeared to be in mild distressed HEENT: Normocephalic. Atraumatic. No conjunctival congestion or icterus. Patient has moist mucous membranes. NECK: Supple. Trachea midline. CHEST/LUNGS: Clear to auscultated bilaterally, breathing nonlabored. No wheezes crackles or rhonchi. HEART/CARDIOVASCULAR: Regular in rate and rhythm. S1 and S2 positive. ABDOMEN: Abdomen is soft, nontender. Patient has normal bowel sounds. SKIN: There is no rash. Warm and dry. NEURO: No focal motor deficit. Follows command. MUSCULOSKELETAL: No joint effusion or tenderness. EXTRIMITY: No edema, no cyanosis or clubbing. PSYCH: Cooperative. Subjective Date of service: 06/15/17 Interval history: Patient seen and examined. Medical records and medication list reviewed. No acute event overnight noted by the RN. Patient tolerating mechanical soft diet c/o neck pain, BP still elevated, c/o generalized weakness, did not get up from bed by himself Discussed plan of care at bedside with patient Objective - Constitutional Vitals: Vital Signs - 12hr 06/15/17 06/15/17 06/15/17 21:23 21:26 22:00 Temperature Pulse Rate 78 Respiratory Rate Blood Pressure 158/99 Blood Pressure [Right] O2 Sat by Pulse 96 Oximetry 06/15/17 06/16/17 06/16/17 23:24 04:30 04:38 Temperature 97.9 F 97.9 F Pulse Rate 78 86 Respiratory 20 18 Rate Blood Pressure 170/95 170/95 Blood Pressure 145/98 [Right] O2 Sat by Pulse 99 98 Oximetry 06/16/17 06/16/17 06/16/17 05:00 05:52 07:43 Temperature 97.7 F 97.9 F Pulse Rate 80 80 75 Respiratory 18 20 Rate Blood Pressure 137/92 Blood Pressure 135/86 [Right] O2 Sat by Pulse 98 98 96 Oximetry - Labs CBC & Chem 7: 06/13/17 02:40 06/14/17 06:43 Labs: Abnormal lab results 06/15/17 06/15/17 06/15/17 Range/Units 12:21 17:17 21:16 POC Glucose 188 H 188 H 157 H (70-105) 06/16/17 Range/Units 06:27 POC Glucose 150 H (70-105)
[2017-06-16] MEDS: ASPIRIN PR SCH (09:34)
[2017-06-16] MEDS: PEPCID PO SCH ×2 (09:34→23:03)
[2017-06-16] MEDS: LOPRESSOR PO SCH ×2 (09:34→23:06)
[2017-06-16] MEDS: HEPARIN SUB-Q SCH ×2 (09:34→23:04)
[2017-06-16] MEDS: NORVASC PO SCH (09:34)
[2017-06-16] MEDS: SODIUM CHLORIDE FLUSH SYRINGE 10 ML IV SCH ×2 (09:35→23:05)
[2017-06-16] MEDS: DULCOLAX PR SCH (11:48)
[2017-06-16] MEDS: MIRALAX 3350 PO SCH (11:55)
--- NOTE | 2017-06-16 13:11 | Cat Scan Report ---
CT HEAD WITHOUT CONTRAST: HISTORY: Right sided numbness. TECHNIQUE: Sequential 2.5mm CT images. COMPARISON: CT head dated 06/12/17. MR brain dated 06/13/17. FINDINGS: No change is appreciated since the previous CT head. The previously described small focal infarcts in the tim and right cerebellar peduncles appear unchanged. No evidence for hemorrhage or new large area of acute ischemia. Prominent Virchow Richie spaces or tiny chronic lacunar infarcts in both basal ganglia are noted and unchanged. Mild cortical volume loss is unchanged. Ventricular size is stable. No extra-axial fluid collection. The calvarium is intact. The sinuses and mastoid air cells are adequately aerated. IMPRESSION: No acute intracranial process is identified. Stable findings since 06/12/17.
--- NOTE | 2017-06-16 15:20 | XRay Report ---
AP ABDOMEN: HISTORY: Vomiting. The abdominal gas pattern is unremarkable. No masses or organomegaly is identified and there is no gross evidence of free air or fluid. No significant soft tissue calcifications are noted. IMPRESSION: Unremarkable abdomen.
--- NOTE | 2017-06-16 17:16 | Progress Note ---
Assessment and Plan /Acute CVA (cerebrovascular accident) CVA w/u initiated MRI/MRA/CDS and ECHO ordered MRI showed right Sherice and cerebellar peduncle infract cont aspirin and statin per neurology will repeat MRI head and neck as pt daughter thinks his stroke might have progressed - repeat CT negative Discussed with neurology in details /Neck pain, could cervical neuropathy vs spinal stenosis, ordered MRI neck /HTN (hypertension) Not on any meds at home cont on norvasc, added BB /T2DM (type 2 diabetes mellitus) SSI Coverage for now A1c 7.2, initiated metformin /HLD (hyperlipidemia) Initiated statin, changed it to high dose prt stroke protocol /Nausea with vomiting- resolved, placed on zofran /DVT prophylaxis On Heparin Brief history: This 67-year-old right-handed Uzbek male developed right sided neck pain radiating to the top of his head on Monday that on Monday the pain was worse with associated vertigo and weakness of his arm and leg but not of his face without nausea. He was admitted to [facility] for further evaluation. His MRI showed right sided small acute CVA. Now repeating MRI as daughter c/o worsening symptom. Radiological test: MRI brain: 2 mm foci of diffusion restriction identified in the right sherice and right inferior cerebellar peduncle consistent with subacute ischemic infarct. Hospitalist Physical exam: GENERAL: well-developed and well-nourished male lying on bed appeared to be in mild distressed, does not opes eyes HEENT: Normocephalic. Atraumatic. No conjunctival congestion or icterus. Patient has moist mucous membranes. NECK: Supple. Trachea midline. CHEST/LUNGS: Clear to auscultated bilaterally, breathing nonlabored. No wheezes crackles or rhonchi. HEART/CARDIOVASCULAR: Regular in rate and rhythm. S1 and S2 positive. ABDOMEN: Abdomen is soft, nontender. Patient has normal bowel sounds. SKIN: There is no rash. Warm and dry. NEURO: moves all extremities MUSCULOSKELETAL: No joint effusion or tenderness. EXTRIMITY: No edema, no cyanosis or clubbing. PSYCH: Cooperative. Subjective Date of service: 06/16/17 Interval history: Patient seen and examined. Medical records and medication list reviewed. patient c/o nausea vomiting this morning Per daughter patient has right sided numbness and she stated that that was not there before discussed plan of care with daughter in details Objective - Constitutional Vitals: Vital Signs - 12hr 06/16/17 06/16/17 06/16/17 05:52 07:43 09:34 Temperature 97.7 F 97.9 F Pulse Rate 80 75 75 Pulse Rate [ From Monitor] Respiratory 18 20 Rate Blood Pressure 137/92 137/92 Blood Pressure 135/86 [Right] O2 Sat by Pulse 98 96 Oximetry 06/16/17 06/16/17 06/16/17 09:46 10:00 11:32 Temperature 97.9 F Pulse Rate 88 93 H Pulse Rate [ 75 From Monitor] Respiratory 20 18 Rate Blood Pressure 124/92 Blood Pressure [Right] O2 Sat by Pulse 96 97 97 Oximetry 06/16/17 12:20 Temperature 97.9 F Pulse Rate 95 H Pulse Rate [ From Monitor] Respiratory 18 Rate Blood Pressure Blood Pressure 124/92 [Right] O2 Sat by Pulse 98 Oximetry - Labs CBC & Chem 7: 06/13/17 02:40 06/14/17 06:43 Labs: Abnormal lab results 06/15/17 06/15/17 06/16/17 Range/Units 17:17 21:16 06:27 POC Glucose 188 H 157 H 150 H (70-105) 06/16/17 Range/Units 11:40 POC Glucose 169 H (70-105)
--- NOTE | 2017-06-16 17:20 | Magnetic Resonance Report ---
FINAL REPORT PROCEDURE: MR BRAIN WO CON TECHNIQUE: Magnetic resonance imaging of the brain was performed without contrast material. HISTORY: right sided numbness COMPARISON: Prior CT scan of the brain 06/16/2017 FINDINGS: The ventricles are normal size and are midline. The sulcal pattern and fissures are mildly prominent consistent with mild atrophy. There prominent perivascular spaces in the base the brain. There is mild increased T2 signal in the periventricular white matter and deep white matter suggesting gliosis related to microvascular disease or white matter changes of aging.. There is a small oval area of increased T2 signal and restricted diffusion near the junction of the cervical cord and medulla on the right laterally consistent with an acute or subacute lacunar infarct. A 2nd lacunar infarct is also visualized in the inferior aspect of the tim anteriorly and to the right of midline. These findings are seen on diffusion-weighted imaging, image 9 series 4 and image 12 series 4. Corpus callosum, region of the pituitary fossa and foramen magnum are unremarkable. There is minimal mucosal thickening posteriorly inferiorly in the left maxillary sinus. Paranasal sinuses otherwise are clear. Mastoid air cells are clear. IMPRESSION: Two small areas restricted diffusion are visualized, 1 in the right side of the tim and 1 near the junction of the cervical cord and medulla to the right of midline as described above. There is no significant mass effect or hemorrhage. There is evidence of mild atrophy and gliosis. Critical value: These findings were discussed in detail with the patient's nurse, nurse Germain Westfall on 06/16/2017 at 5:12 p.m. Eastern standard time who informs me the patient's attending physician will be notified immediately.
--- NOTE | 2017-06-16 18:35 | Magnetic Resonance Report ---
FINAL REPORT EXAM: MR CERVICAL SPINE WO CON HISTORY: right sided numbness TECHNIQUE: MRI examination of the cervical spine without IV contrast PRIORS: Brain MRI 06/16/2017 FINDINGS: Diffusion-weighted imaging not routinely performed on cervical spine MRI. Lesions noted in the tim and brainstem on comparison brain MRI not visible on this exam. Cervical cord and visualized upper portion of the thoracic cord: Nonspecific subtle increased signal in the central cord on T2 and inversion recovery sequences may reflect slight myelomalacia. Acute bone marrow edema: None Vertebral compression fracture: None Anterolisthesis: None Retrolisthesis: C4-5 trace, C5-6 trace Disc narrowing: C4-5 severe, C5-6 moderate, C6-7 slight Diffuse disc bulge: C3-4 moderate, C4-5 moderate, C5-6 moderate, C6-7 slight, C7-T1 slight C5-6 disc bulge predominates to the left of midline and may be associated with a disc-osteophyte complex at the left uncinate joint Focal disc protrusion: Midline posterior protrusion superimposed on the C3-4 disc bulge measures 2.5 mm AP x 4.1 mm transverse. This contacts the ventral margin of the cervical cord. T2 hyperintensity within this disc protrusion may reflect edema. Central canal stenosis: C3-4 moderate to severe, C4-5 moderate to severe, C5-6 severe There is multilevel degenerative hypertrophic changes at the facet joints, uncinate joints, and vertebral endplates. Along with disc bulge, these contribute to neural foraminal stenosis. Right neural foraminal stenosis: C3-4 slight, C4-5 slight, C5-6 severe, C6-7 moderate to severe, C7-T1 slight Left neural foraminal stenosis: C4-5 slight, C5-6 severe, C6-7 moderate to severe, C7-T1 slight to moderate IMPRESSION: Nonspecific subtle T2 hyperintensity in the central cord may reflect slight encephalomalacia secondary to central canal stenosis from C3 through upper C6. Trace degenerative retrolisthesis at C4-5 and C5-6 Midline posterior disc protrusion at C3-4 contacting the ventral margin of the cervical cord Multilevel degenerative change, disc narrowing, diffuse disc bulge, central canal stenosis, and bilateral neural foraminal stenosis
--- NOTE | 2017-06-16 20:29 | Progress Note ---
Assessment and Plan Impression: 1. Brainstem lacunar strokes 2. Hypertension 3. Bladder retention Plan: 1. Since he has just started Lopressor, no need as yet to increase it below sometimes a beta marialuisa has some risk of masking symptoms of hypoglycemia. 2. I showed the images of the old and new MRI to him and his daughter and explained edema around a stroke versus enlargement of a stroke. I explained we cannot tell as yet which this represents. 3. I told him and her that he should not have his Tay catheter removed this soon since he had bladder retention. Dr. Cummins may wish to consult a urologist about timing of another trial without a Tay. 4. I explained I will change his aspirin to oral route. 5. I told his daughter to ask for Percocet when he gets pain and to ask for whoever is covering at night for Dr. Cummins when necessary since she was told no one was covering, but it may be that the nurse meant no neurologist covering night. I explained the private practice neurologist is on most weekends for any emergencies. 40 minutes spent including greater than 50% counseling regarding meaning of MRI images and need for continuing Tay catheter and added blood pressure medications. I explained Dr. Muse is covering next week. Subjective Date of service: 06/16/17 Principal diagnosis: brainstem strokes Interval history: HPI: This 67-year-old Persian male is seen again in follow-up for brainstem strokes. According to his daughter, he developed right eye pain with numbness of the right side of his face yesterday. Blood pressure was high last night but he got some intravenous hydralazine apparently last night and early this morning. Norvasc had been added earlier and Lopressor was added today, both orally. His daughter states he did finally get some pain medication for his pain. He is complaining of bladder pain from the Tay and while examining him he tried to pull it out until I stopped him and told his daughter that it has a balloon inside that will hurt if he tries to remove it. She states he was more dizzy moving around today with nausea. MRI repeated today of the brain at my suggestion showed slightly increased size right lateral medullary lesion but no change in right anterior pontine lesion. I told his daughter this enlargement could account for his increased nausea and dizziness and right facial numbness but we cannot say whether the enlargement of the medullary lesion represents edema next 2 the stroke or the stroke itself has enlarged a little. I told her if it is edema it should go away by the 10th day after the stroke and he would then have some relative improvement. I told her there are no other medications to give for this except the aspirin he is already on which I'll change to oral formulation and blood pressure medicine to control his blood pressure which is now much better. Objective - Exam Narrative Exam: General appearance: well-developed but overweight (per BMI) late 60s age and male in NAD, with his daughter at the bedside. Neurologic Exam: Mental Status: Awake alert oriented to beginning of June, knows it is Monday and that it is 2017, speech is clear and seems less hoarse than yesterday, names pen and point of pen in Persian. Cranial Nerves: cazares full, PERRLA, EOMs full without nystagmus or diplopia, no facial weakness, hears finger rub bilaterally, shoulder shrug is 5 X 2, tongue protrudes midline. Cerebellar: finger to nose is slightly dysmetric bilaterally, [id number] is normal bilaterally. Motor Exam Upper Extremities: no drift or pronation, Kurt are normal. Motor Exam Lower Extremities: Mild left leg lag with some bladder pain. Quadriceps is 5 right and 5- left with associated pain, anterior tibials and gastrocnemius are 5 bilaterally. Kurt are normal. - Vital Sign Vital Signs - 12hr 06/16/17 06/16/17 06/16/17 09:34 09:46 10:00 Temperature Pulse Rate 75 88 Pulse Rate [ 75 From Monitor] Respiratory 20 Rate Blood Pressure 137/92 Blood Pressure [Right] O2 Sat by Pulse 96 97 Oximetry 06/16/17 06/16/17 06/16/17 11:32 12:20 19:46 Temperature 97.9 F 97.9 F 98.1 F Pulse Rate 93 H 95 H 80 Pulse Rate [ From Monitor] Respiratory 18 18 18 Rate Blood Pressure 124/92 155/112 Blood Pressure 124/92 [Right] O2 Sat by Pulse 97 98 96 Oximetry - Laboratory Findings CBC and BMP: 06/13/17 02:40 06/14/17 06:43 Abnormal Lab Findings: Abnormal Labs 06/12/17 06/12/17 06/12/17 09:34 09:34 09:34 MCV MCHC Eos % (Auto) 7.0 H Eos # 0.6 H PT 12.1 L INR 0.86 L BUN Glucose 195 H POC Glucose Hemoglobin A1c HDL Cholesterol Ur Specific High View 06/12/17 06/12/17 06/12/17 10:10 12:42 15:42 MCV MCHC Eos % (Auto) Eos # PT INR BUN Glucose POC Glucose 196 H 146 H Hemoglobin A1c HDL Cholesterol Ur Specific High View 1.057 H 06/12/17 06/13/17 06/13/17 21:26 02:40 02:40 MCV 83 L MCHC 35 H Eos % (Auto) 5.2 H Eos # PT INR BUN Glucose 182 H POC Glucose 113 H Hemoglobin A1c HDL Cholesterol Ur Specific High View 06/13/17 06/13/17 06/13/17 02:40 10:00 15:00 MCV MCHC Eos % (Auto) Eos # PT INR BUN Glucose POC Glucose 191 H 140 H Hemoglobin A1c 7.2 H HDL Cholesterol Ur Specific High View 06/13/17 06/13/17 06/14/17 18:26 21:03 06:43 MCV MCHC Eos % (Auto) Eos # PT INR BUN 21 H Glucose 128 H POC Glucose 139 H 143 H Hemoglobin A1c HDL Cholesterol 65 H Ur Specific High View 06/14/17 06/14/17 06/14/17 06:44 12:27 17:22 MCV MCHC Eos % (Auto) Eos # PT INR BUN Glucose POC Glucose 124 H 152 H 194 H Hemoglobin A1c HDL Cholesterol Ur Specific High View 06/14/17 06/15/17 06/15/17 22:12 07:10 12:21 MCV MCHC Eos % (Auto) Eos # PT INR BUN Glucose POC Glucose 165 H 121 H 188 H Hemoglobin A1c HDL Cholesterol Ur Specific High View 06/15/17 06/15/17 06/16/17 17:17 21:16 06:27 MCV MCHC Eos % (Auto) Eos # PT INR BUN Glucose POC Glucose 188 H 157 H 150 H Hemoglobin A1c HDL Cholesterol Ur Specific High View 06/16/17 11:40 MCV MCHC Eos % (Auto) Eos # PT INR BUN Glucose POC Glucose 169 H Hemoglobin A1c HDL Cholesterol Ur Specific High View
[2017-06-16] MEDS: MORPHINE IV PRN (20:51)
[2017-06-16] MEDS: PRAVACHOL PO SCH (23:03)
[2017-06-17] MEDS: GLUCOPHAGE PO SCH ×2 (08:00→18:00)
[2017-06-17] MEDS: HumaLOG SUB-Q SCH ×4 (08:00→22:43)
[2017-06-17] MEDS: HEPARIN SUB-Q SCH ×3 (11:00→22:46)
[2017-06-17] MEDS: LOPRESSOR PO SCH (11:00)
[2017-06-17] MEDS: PEPCID PO SCH ×2 (11:30→22:45)
[2017-06-17] MEDS: NORVASC PO SCH (11:31)
[2017-06-17] MEDS: MIRALAX 3350 PO SCH (11:31)
[2017-06-17] MEDS: BABY ASPIRIN PO SCH (11:31)
[2017-06-17] MEDS: DULCOLAX PR SCH (11:33)
--- NOTE | 2017-06-17 11:37 | Fluoroscopy Report ---
FLUOROSCOPIC MODIFIED BARIUM SWALLOW: 06/17/17 CLINICAL: Dysphagia FINDINGS: The patient ingested barium impregnated substances of varying consistencies and swallowing was observed fluoroscopically. Significant findings include silent laryngeal aspiration. IMPRESSION: Silent laryngeal aspiration. For more detail, please refer to the speech pathologist's report.
[2017-06-17 12:21] LABS: Hematocrit 43.5 % (35.5-45.6); Hemoglobin 14.4 gm/dl (11.8-15.2); Mean Corpuscular HGB Conc 33 % (32-34); Mean Corpuscular Hemoglobin 28 pg (28-32); Mean Corpuscular Volume 85 fl (84-94); Platelet Count 222 K/mm3 (140-440); Red Blood Count 5.09 M/mm3 (3.65-5.03); Red Cell Distribution Width 13.4 % (13.2-15.2)
[2017-06-17 12:39] LABS: BUN/Creatinine Ratio 21; Blood Urea Nitrogen 25 mg/dL (9-20); Calcium 8.9 mg/dL (8.4-10.2); Hemolysis Index 20
[2017-06-17] MEDS: SODIUM CHLORIDE FLUSH SYRINGE 10 ML IV SCH ×2 (22:42)
[2017-06-17] MEDS: PRAVACHOL PO SCH (22:45)
[2017-06-17] MEDS: ZESTRIL PO SCH (22:45)
[2017-06-18] MEDS: HumaLOG SUB-Q SCH ×3 (07:40→17:08)
[2017-06-18] MEDS: HEPARIN SUB-Q SCH ×2 (10:48→22:24)
[2017-06-18] MEDS: BABY ASPIRIN PO SCH (10:48)
[2017-06-18] MEDS: ZESTRIL PO SCH ×2 (10:48→22:23)
[2017-06-18] MEDS: NORVASC PO SCH (10:48)
[2017-06-18] MEDS: GLUCOPHAGE PO SCH ×2 (10:48→17:08)
[2017-06-18] MEDS: PEPCID PO SCH ×2 (10:48→22:23)
[2017-06-18] MEDS: MIRALAX 3350 PO SCH (10:49)
[2017-06-18] MEDS: DULCOLAX PR SCH (10:49)
[2017-06-18] MEDS: SODIUM CHLORIDE FLUSH SYRINGE 10 ML IV SCH ×2 (10:49→22:24)
--- NOTE | 2017-06-18 11:49 | Progress Note ---
Assessment and Plan /Acute CVA (cerebrovascular accident) CVA w/u initiated MRI/MRA/CDS and ECHO ordered MRI showed right Sherice and cerebellar peduncle infract cont aspirin and statin per neurology Repeat MRI head and neck obtained as pt daughter thinks his stroke might have progressed - repeat CT negative, repeat MRI showed edema and swelling around the infarct area, no progression or no new acute infarct /Neck pain, - MRI of the knee showed possible central canal stenosis from C3 to C6 and degenerative joint disease /HTN (hypertension) Not on any meds at home cont on norvasc, added BB /T2DM (type 2 diabetes mellitus) SSI Coverage for now A1c 7.2, initiated metformin /HLD (hyperlipidemia) Initiated statin, changed it to high dose prt stroke protocol /Nausea with vomiting- resolved, placed on zofran / Urinary retention - could be from BPH, placed on a Tay - We'll consult urology to discuss further plan /Physical debility, PT consulted on admission and recommended home health We'll reconsult PT before discharge /Oropharyngeal dysphagia - Mechanical soft diet and nectar thick liquid per speech therapy - But patient daughter demanded to patient to have regular diet so modified barium swallow study ordered, will follow results /DVT prophylaxis On Heparin Brief history: This 67-year-old right-handed Nepalese male developed right sided neck pain radiating to the top of his head on Monday that on Monday the pain was worse with associated vertigo and weakness of his arm and leg but not of his face without nausea. He was admitted to [facility] for further evaluation. His MRI showed right sided small acute CVA. Repeated MRI/ CT head as daughter c/o worsening symptom which showed no acute infarct and possible swelling and edema around the recent infarct area. MRI of the cervical spine obtained for neck pain which showed possible central canal stenosis from C3 to C6 and degenerative joint disease, patient will need outpatient follow-up. On 06/16 patient also developed urinary retention and placed on a Tay. Radiological test: MRI brain: 2 mm foci of diffusion restriction identified in the right sherice and right inferior cerebellar peduncle consistent with subacute ischemic infarct. Hospitalist Physical exam: GENERAL: well-developed and well-nourished male lying on bed appeared to be in mild distressed, does not opes eyes HEENT: Normocephalic. Atraumatic. No conjunctival congestion or icterus. Patient has moist mucous membranes. NECK: Supple. Trachea midline. CHEST/LUNGS: Clear to auscultated bilaterally, breathing nonlabored. No wheezes crackles or rhonchi. HEART/CARDIOVASCULAR: Regular in rate and rhythm. S1 and S2 positive. ABDOMEN: Abdomen is soft, nontender. Patient has normal bowel sounds. SKIN: There is no rash. Warm and dry. NEURO: moves all extremities MUSCULOSKELETAL: No joint effusion or tenderness. EXTRIMITY: No edema, no cyanosis or clubbing. PSYCH: Cooperative. Subjective Date of service: 06/17/17 Principal diagnosis: brainstem strokes Interval history: Patient seen and examined. Medical records and medication list reviewed. patient was placed on Tay as he developed urinary retention yesterday Barium swallow study ordered as patient daughter wanted patient to have regular diet even though speech therapy recommended mechanical soft diet and nectar thick liquid discussed plan of care with daughter in details Objective - Constitutional Vitals: Vital Signs - 12hr 06/18/17 06/18/17 06/18/17 00:38 01:18 04:41 Temperature 98.9 F 97.8 F Pulse Rate 78 77 89 Respiratory 18 20 Rate Blood Pressure 141/90 Blood Pressure 141/90 128/94 [Right] O2 Sat by Pulse 97 96 98 Oximetry 06/18/17 06/18/17 06/18/17 08:19 08:31 10:00 Temperature 97.7 F Pulse Rate 77 63 Respiratory 20 Rate Blood Pressure 133/95 Blood Pressure [Right] O2 Sat by Pulse 98 97 Oximetry - Labs CBC & Chem 7: 06/17/17 11:54 06/17/17 11:54 Labs: Abnormal lab results 06/16/17 06/16/17 06/17/17 Range/Units 17:59 21:18 11:23 RBC (3.65-5.03) M/mm3 Sodium (137-145) mmol/L Chloride (98-107) mmol/L BUN (9-20) mg/dL Glucose (75-100) mg/dL POC Glucose 155 H 142 H 183 H (70-105) 06/17/17 06/17/17 06/17/17 Range/Units 11:54 11:54 16:02 RBC 5.09 H (3.65-5.03) M/mm3 Sodium 136 L (137-145) mmol/L Chloride 96.2 L (98-107) mmol/L BUN 25 H (9-20) mg/dL Glucose 211 H (75-100) mg/dL POC Glucose 210 H (70-105) 06/17/17 06/18/17 Range/Units 21:33 06:31 RBC (3.65-5.03) M/mm3 Sodium (137-145) mmol/L Chloride (98-107) mmol/L BUN (9-20) mg/dL Glucose (75-100) mg/dL POC Glucose 176 H 144 H (70-105)
--- NOTE | 2017-06-18 13:09 | Cat Scan Report ---
CT ABDOMEN PELVIS WITHOUT CONTRAST: HISTORY: Urinary retention. COMPARISON: none. TECHNIQUE: Helical CT in 1.25mm intervals without IV contrast. Sagittal and coronal reconstructions. FINDINGS: Lung bases: Normal. Liver: Normal. Biliary system: Normal. Pancreas: Normal. Spleen: Normal. Kidneys/ureters/bladder: The kidneys are normal size and position. A lobulated cyst in the mid right kidney measures 3.8 cm. No evidence for calculus or hydronephrosis. The ureters are normal course and caliber. The bladder is decompressed with a Tay catheter. Adrenal glands: Normal. Aorta: Normal. Intestines: There is moderate to large debris in the stomach. There is oral contrast throughout the distal small bowel loops and colon. No focal inflammation or obstruction is appreciated. Appendix: Normal. Pelvic viscera: Normal. Ascites: None. Adenopathy: None. Musculoskeletal: Intact. IMPRESSION: Unremarkable CT scan of the abdomen and pelvis without contrast. No clear explanation for urinary retention. The bladder is decompressed and contains a Tay catheter. Right renal cyst.
--- NOTE | 2017-06-18 18:50 | Progress Note ---
Assessment and Plan /Acute CVA (cerebrovascular accident) CVA w/u initiated MRI/MRA/CDS and ECHO ordered MRI showed right Sherice and cerebellar peduncle infract cont aspirin and statin per neurology Repeated MRI head and neck obtained as pt developed worsening symptom on the right side with increased numbness - repeat CT negative, repeat MRI showed likely edema and swelling around the infarct area vs progression of the recent cva , no new acute infarct /Neck pain, - MRI of the knee showed possible central canal stenosis from C3 to C6 and degenerative joint disease /HTN (hypertension) Not on any meds at home cont on norvasc, added BB /T2DM (type 2 diabetes mellitus) SSI Coverage for now A1c 7.2, initiated metformin /HLD (hyperlipidemia) Initiated statin, changed it to high dose prt stroke protocol /Nausea with vomiting- resolved, placed on zofran / Urinary retention - placed on a Tay, etiology neurogenic vs mechanical - CT abdomen/pelvis w/o any acute finding - We'll consult urology to discuss further plan /Physical debility, PT consulted on admission and recommended home health Reconsulted PT for repeat eval /Oropharyngeal dysphagia - Mechanical soft diet and nectar thick liquid per speech therapy - But patient daughter demanded to patient to have regular diet so modified barium swallow study ordered, recommendation remained same /DVT prophylaxis On Heparin Brief history: This 67-year-old right-handed Japanese male developed right sided neck pain radiating to the top of his head on Monday that on Monday the pain was worse with associated vertigo and weakness of his arm and leg but not of his face without nausea. He was admitted to [facility] for further evaluation. His MRI showed right sided small acute CVA. Repeated MRI/ CT head as daughter c/o worsening symptom which showed no acute infarct and possible swelling and edema around the recent infarct area vs progression of the recent CVA. MRI of the cervical spine obtained for neck pain which showed possible central canal stenosis from C3 to C6 and degenerative joint disease, patient will need outpatient follow- up. On 06/16 patient also developed urinary retention and placed on a Tay. Radiological test: MRI brain: 2 mm foci of diffusion restriction identified in the right sherice and right inferior cerebellar peduncle consistent with subacute ischemic infarct. Hospitalist Physical exam: GENERAL: well-developed and well-nourished male lying on bed appeared to be in mild distressed, does not opes eyes HEENT: Normocephalic. Atraumatic. No conjunctival congestion or icterus. Patient has moist mucous membranes. NECK: Supple. Trachea midline. CHEST/LUNGS: Clear to auscultated bilaterally, breathing nonlabored. No wheezes crackles or rhonchi. HEART/CARDIOVASCULAR: Regular in rate and rhythm. S1 and S2 positive. ABDOMEN: Abdomen is soft, nontender. Patient has normal bowel sounds. SKIN: There is no rash. Warm and dry. NEURO: moves all extremities MUSCULOSKELETAL: No joint effusion or tenderness. EXTRIMITY: No edema, no cyanosis or clubbing. PSYCH: Cooperative. Subjective Date of service: 06/18/17 Principal diagnosis: brainstem strokes Interval history: Patient seen and examined. Medical records and medication list reviewed. patient on Tay, denies any pain, appears much better today, taking and responding appropriately discussed plan of care with Son- in law in details Objective - Constitutional Vitals: Vital Signs - 12hr 06/18/17 06/18/17 06/18/17 08:19 08:31 10:00 Temperature 97.7 F Pulse Rate 77 63 Respiratory 20 Rate Blood Pressure 133/95 O2 Sat by Pulse 98 97 Oximetry - Labs CBC & Chem 7: 06/17/17 11:54 06/17/17 11:54 Labs: Abnormal lab results 06/17/17 06/17/17 06/18/17 Range/Units 16:02 21:33 06:31 POC Glucose 210 H 176 H 144 H (70-105) 06/18/17 06/18/17 Range/Units 11:23 16:24 POC Glucose 219 H 187 H (70-105)
[2017-06-18] MEDS: PRAVACHOL PO SCH (22:24)
[2017-06-19] MEDS: HumaLOG SUB-Q SCH ×3 (00:06→13:54)
--- NOTE | 2017-06-19 08:12 | Consultation ---
History of Present Illness - Reason for Consult Consult date: 06/19/17 - History of Present Illness This 67-year-old right-handed Nepali male developed right sided neck pain radiating to the top of his head on Monday that on Monday the pain was worse with associated vertigo and weakness of his arm and leg but not of his face without nausea. He was admitted to [facility] for further evaluation. His MRI showed right sided small acute CVA. Repeated MRI/ CT head as daughter c/o worsening symptom which showed no acute infarct and possible swelling and edema around the recent infarct area. MRI of the cervical spine obtained for neck pain which showed possible central canal stenosis from C3 to C6 and degenerative joint disease, patient will need outpatient follow-up. On 06/16 patient also developed urinary retention and placed on a Tay. /Neck pain, - MRI of the knee showed possible central canal stenosis from C3 to C6 and degenerative joint disease /HTN (hypertension) Not on any meds at home cont on norvasc, added BB /T2DM (type 2 diabetes mellitus) SSI Coverage for now A1c 7.2, initiated metformin /HLD (hyperlipidemia) Initiated statin, changed it to high dose prt stroke protocol /Nausea with vomiting- resolved, placed on zofran /Physical debility, PT consulted on admission and recommended home health CTAP - NORMAL, RENAL CYST A/P Urinary retention BPH, home with Tay needs outpt urodynamics to eval source of retention (BPH, NEUROLOGIC-CVA, NEUROMUSCULAR - DIABETES) Past History Past Medical History: hypertension (borderline), other (injury to head when a tree fell on him 30 years ago but did not have persistent headaches from it.) Social history: other (high school graduate, 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 Has 2 children, lives with his in one of his daughters and her family.). denies: smoking, alcohol abuse (José some alcohol when much younger), prescription drug abuse, IV drug use (never illicit drugs) Family history: diabetes (brother (same one)), hypertension (same brother), stroke (brother), other (no history of epilepsy) Medications and Allergies Allergies Allergy/AdvReac Type Severity Reaction Status Date / Time No Known Allergies Allergy Unverified 06/12/17 08:59 Home Medications Medication Instructions Recorded Confirmed Last Taken Type No Known Home Medications [No 06/12/17 06/12/17 Unknown History Reported Home Medications] Active Meds: Active Medications Acetaminophen (Tylenol) 650 mg PO Q4H PRN PRN Reason: Pain MILD(1-3)/Fever >100.5/KEANE Amlodipine Besylate (Norvasc) 10 mg PO QDAY [facility] Last Admin: 06/18/17 10:48 Dose: 10 mg Aspirin (Baby Aspirin) 81 mg PO QDAY [facility] Last Admin: 06/18/17 10:48 Dose: 81 mg Bisacodyl (Dulcolax) 10 mg [place] QDAY [facility] Last Admin: 06/18/17 10:49 Dose: 10 mg Famotidine (Pepcid) 20 mg PO BID [facility] Last Admin: 06/18/17 22:23 Dose: 20 mg Heparin Sodium (Porcine) (Heparin) 5,000 unit SUB-Q Q12HR [facility] Last Admin: 06/18/17 22:24 Dose: 5,000 unit Hydralazine HCl (Apresoline) 10 mg IV Q6HR PRN PRN Reason: hyper Last Admin: 06/16/17 20:50 Dose: 10 mg Insulin Human Lispro (Humalog) 0 unit SUB-Q [facility]; Protocol Last Admin: 06/19/17 00:06 Dose: 2 unit Lisinopril (Zestril) 10 mg PO BID [facility] Last Admin: 06/18/17 22:23 Dose: 10 mg Metformin HCl (Glucophage) 500 mg PO BIDDIAB [facility] Last Admin: 06/18/17 17:08 Dose: 500 mg Morphine Sulfate (Morphine) 2 mg IV Q4H PRN PRN Reason: Pain, Moderate (4-6) Last Admin: 06/16/17 20:51 Dose: 2 mg Ondansetron HCl (Zofran) 8 mg IV Q8H PRN PRN Reason: Nausea And Vomiting Last Admin: 06/13/17 20:58 Dose: 8 mg Oxycodone/Acetaminophen (Percocet 5/325) 1 tab PO Q6H PRN PRN Reason: Pain, Moderate (4-6) Last Admin: 06/16/17 04:55 Dose: 1 tab Polyethylene Glycol (Miralax 3350) 17 gm PO QDAY [facility] Last Admin: 06/18/17 10:49 Dose: 17 gm Pravastatin Sodium (Pravachol) 80 mg PO QHS [facility] Last Admin: 06/18/17 22:24 Dose: 80 mg Sodium Chloride (Sodium Chloride Flush Syringe 10 Ml) 10 ml IV BID [facility] Last Admin: 06/18/17 22:24 Dose: 10 ml Sodium Chloride (Sodium Chloride Flush Syringe 10 Ml) 10 ml IV PRN PRN PRN Reason: LINE FLUSH Zolpidem Tartrate (Ambien) 5 mg PO QHS PRN PRN Reason: Insomnia Exam - Constitutional Vitals: Temp Pulse Resp BP Pulse Ox 97.9 F 83 19 115/87 98 06/19/17 07:22 06/19/17 07:22 06/19/17 07:22 06/19/17 07:22 06/19/17 07:22 Results - Labs CBC & Chem 7: 06/17/17 11:54 06/17/17 11:54 Labs: Abnormal lab results 06/18/17 06/18/17 06/18/17 Range/Units 11:23 16:24 22:00 POC Glucose 219 H 187 H 172 H (70-105) 06/19/17 Range/Units 06:14 POC Glucose 238 H (70-105)
[2017-06-19] MEDS: HEPARIN SUB-Q SCH (10:02)
[2017-06-19] MEDS: MIRALAX 3350 PO SCH (10:04)
[2017-06-19] MEDS: PEPCID PO SCH (10:04)
[2017-06-19] MEDS: GLUCOPHAGE PO SCH (10:04)
[2017-06-19] MEDS: NORVASC PO SCH (10:04)
[2017-06-19] MEDS: BABY ASPIRIN PO SCH (10:04)
[2017-06-19] MEDS: ZESTRIL PO SCH (10:05)
[2017-06-19] MEDS: DULCOLAX PR SCH (10:52)
--- NOTE | 2017-06-19 12:03 | Discharge Summary ---
Providers - Providers Date of Admission: 06/12/17 12:41 Date of discharge: 06/19/17 Attending physician: DESTINY MENDOZA 06/13/17 02:11 Consult to Physician [CONS] Routine Comment: Consulting Provider: YOLANDE LOPEZ Physician Instructions: Reason For Exam: Cva 06/13/17 02:16 Occupational Therapy Evaluate and Treat [CONS] Routine Comment: Reason For Exam: Neuro deficits Physical Therapy Evaluation and Treat [CONS] Routine Comment: Reason For Exam: Neuro deficits 06/13/17 17:52 Speech Therapy Evaluation and Treat [CONS] Urgent Reason For Exam: brainstem strokes, vomiting, please eval dysphagia 06/17/17 11:13 Physical Therapy Evaluation and Treat [CONS] Routine Comment: Reason For Exam: placement Primary care physician: [facility] Hospitalization Condition: Fair Hospital course: Brief history: This 67-year-old right-handed [place]ian male developed right sided neck pain radiating to the top of his head on Monday that on Monday the pain was worse with associated vertigo and weakness of his arm and leg but not of his face without nausea. He was admitted to [facility] for further evaluation. His MRI showed right sided small acute CVA. Repeated MRI/ CT head as daughter c/o worsening symptom which showed no acute infarct and possible swelling and edema around the recent infarct area vs progression of the recent CVA. MRI of the cervical spine obtained for neck pain which showed possible central canal stenosis from C3 to C6 and degenerative joint disease, patient will need outpatient follow- up. On 06/16 patient also developed urinary retention and placed on a Tay. CT abdomen/pelvis showed no acute cause for urinary retention. Urology was consulted and recommended outpt follow up. Patient was discharged home in stable condition. Discharge diagnosis and management: /Acute brainstem CVA (cerebrovascular accident) CVA w/u initiated following admission MRI/MRA/CDS and ECHO ordered initial MRI showed right Sherice and cerebellar peduncle infract Placed on aspirin and statin per neurology Repeated MRI head and neck obtained as pt developed worsening symptom on the right side with increased numbness on UE - repeat CT head was negative, repeat MRI showed likely edema and swelling around the infarct area vs progression of the recent cva , no new acute infarct. No additional intervention per neurology recommended. /Neck pain, likely from cervical stenosis - MRI of the neck showed possible central canal stenosis from C3 to C6 and degenerative joint disease - Further management as outpt /HTN (hypertension) Not on any meds at home Started on norvasc and lisinopril /T2DM (type 2 diabetes mellitus) SSI Coverage for now A1c 7.2, initiated metformin /HLD (hyperlipidemia) Initiated statin, changed it to high dose per stroke protocol /Nausea with vomiting- likely from acute CVA, resolved, placed on zofran /Urinary retention - placed on a Tay, etiology neurogenic vs mechanical - CT abdomen/pelvis w/o any acute finding - Consulted urology to discuss further plan and recommended outpt follow up at urology clinic /Physical debility, PT consulted on admission and recommended home health /Oropharyngeal dysphagia - Mechanical soft diet and nectar thick liquid per speech therapy - But patient daughter demanded to patient to have regular diet so modified barium swallow study ordered, recommendation remained same /DVT prophylaxis On Heparin Radiological test: MRI brain: 2 mm foci of diffusion restriction identified in the right sherice and right inferior cerebellar peduncle consistent with subacute ischemic infarct. MRI brain on 06/16: slightly increased size right lateral medullary lesion but no change in right anterior pontine lesion. CT abdomen/pelvis w/o contrast - no acute finding Cervical spine MRI: central canal stenosis from C3 to C6 and degenerative joint disease 2d echo - [address] head - no hemorrhage, no mass Carotid doppler: <50% stenosis b/l Hospitalist Physical exam: GENERAL: well-developed and well-nourished male lying on bed appeared to be in mild distressed, does not opes eyes HEENT: Normocephalic. Atraumatic. No conjunctival congestion or icterus. Patient has moist mucous membranes. NECK: Supple. Trachea midline. CHEST/LUNGS: Clear to auscultated bilaterally, breathing nonlabored. No wheezes crackles or rhonchi. HEART/CARDIOVASCULAR: Regular in rate and rhythm. S1 and S2 positive. ABDOMEN: Abdomen is soft, nontender. Patient has normal bowel sounds. SKIN: There is no rash. Warm and dry. NEURO: moves all extremities MUSCULOSKELETAL: No joint effusion or tenderness. EXTRIMITY: No edema, no cyanosis or clubbing. PSYCH: Cooperative. Disposition: [id number]/TX-06 HOME UNDER HOME HLTH Time spent for discharge: 34 minutes Core Measure Documentation - Palliative Care Palliative Care/ Comfort Measures: Not Applicable - Core Measures Any of the following diagnoses?: stroke - Stroke Discharge Requirements Statin for LDL = or >70 mg/dl on DC: Yes Anticoag for atrial fib/atrial flutter: Not Applicable Antithrombotic for ischemic stroke: Yes Exam - Constitutional Vitals: Temp Pulse Resp BP Pulse Ox 97.9 F 83 19 115/87 96 06/19/17 07:22 06/19/17 07:22 06/19/17 07:22 06/19/17 07:22 06/19/17 10:00 Plan Activity: advance as tolerated, fall precautions Weight Bearing Status: Non-Weight Bearing Diet: low fat, low salt, diabetic Additional Instructions: f/u with urology in 2 weeks Follow up with: PRIMARY CARE, [Primary Care Provider] - 3-5 Days Prescriptions: Pravastatin [Pravachol] 80 mg PO QHS #30 tablet amLODIPine [Norvasc] 10 mg PO QDAY #30 tablet Aspirin [Aspirin BABY CHEW TAB] 81 mg PO QDAY #30 tab.chew Lisinopril [Zestril TAB] 20 mg PO QDAY #30 tablet metFORMIN [Glucophage] 500 mg PO BIDDIAB #60 tablet
[2017-06-19 13:01] VITALS: BP 122/92
--- NOTE | 2017-06-20 16:13 | Vascular Lab Report ---
CAROTID DUPLEX STUDY: RIGHT PSVEDV CCA PROX:[id number] CCA DIST:[id number] ICA PROX:6928 ICA MID:5822 ICA DIST:6023 ECA: 7213 VERT: 28 6 LEFT PSVEDV CCA PROX:6617 CCA DIST:5514 ICA PROX:4419 ICA MID:6526 ICA DIST:6824 ECA: 587 VERT: 38 16 REASON FOR EXAM: Stroke. COMMENTS ON THE RIGHT: Doppler frequency analysis is consistent with 16 to 49 percent diameter reduction of the internal carotid artery. Minimal amount of plaque is seen. The common carotid artery is patent. The external carotid artery is patent. The vertebral artery has antegrade flow. COMMENTS ON THE LEFT: Doppler frequency analysis is consistent with 16 to 49 percent diameter reduction of the internal carotid artery. Minimal amount of plaque is seen. The common carotid artery is patent. The external carotid artery is patent. The vertebral artery has antegrade flow. IMPRESSION: Less than 50% diameter reduction in the internal carotid arteries bilaterally.
== END 2017-06-19 15:10 | disposition home health service (06) | DRG 65 ==
LOC: ED 08:44 → 4A 12:41
PROVIDERS: ADMIT Internal Medicine; ATTEND Internal Medicine
DX: I63.9 Cerebral infarction, unspecified (principal); G81.91 Hemiplegia, unspecified affecting right dominant side; I10 Essential (primary) hypertension; E11.9 Type 2 diabetes mellitus without complications; R47.1 Dysarthria and anarthria; E78.2 Mixed hyperlipidemia; R11.2 Nausea with vomiting, unspecified; R13.12 Dysphagia, oropharyngeal phase; N40.1 Benign prostatic hyperplasia with lower urinary tract symptoms; R33.8 Other retention of urine; M47.812 Spondylosis without myelopathy or radiculopathy, cervical region; M48.02 Spinal stenosis, cervical region
CPT/HCPCS: 36415; 70450; 70496; 70498; 70544; 70551; 71045; 72141; 74018; 74176; 74230; 80048; 80053; 80061; 81001; 82962; 83036; 84484; 85025; 85027; 85610; 85670; 85730; 87086; 93005; 93010; 93306; 93880; 96374; A9270-GY; J0360; J1644; J1815; J2270; J2405; J3010; Q9967